=== PATIENT | male | born 1990 | race Caucasian/White ===

== ENCOUNTER 2022-06-20 11:13 | Emergency (ER) | payer OTHER ==
[~2022-06-20] VITALS: Ht 172.7 cm; Wt 70.0 kg
[2022-06-20 11:27] VITALS: BP 131/68
[2022-06-20] MEDS ORDERED: IBUPROFEN 600MG TABLET PO ONE (15:15)
[2022-06-20] MEDS ORDERED: IBUP-2029 MT (17:04)
== END 2022-06-20 17:48 | disposition home or self-care (01) ==
LOC: ER 11:13
DX: S80.01XA Contusion of right knee, initial encounter (principal); S83.8X1A Sprain of other specified parts of right knee, initial encounter; W01.0XXA Fall on same level from slipping, tripping and stumbling without subsequent striking against object, initial encounter; Y93.89 Activity, other specified; Y92.215 Trade school as the place of occurrence of the external cause
CPT/HCPCS: 73560; 99283; L1830